=== PATIENT | male | born 1980 | race Caucasian/White ===

== ENCOUNTER 2017-02-27 11:08 | Emergency (ER) | payer OTHER, MEDICARE ==
[~2017-02-27] VITALS: Ht 182.9 cm; Wt 108.9 kg
[2017-02-27 11:12] VITALS: BP 167/80
[2017-02-27] MEDS ORDERED: CYCL10TA2 PO (12:09)
--- NOTE | 2017-02-27 12:09 | PHYS DOC ---
Past Medical History Past Medical History: No Pertinent History Past Surgical History: Appendectomy, Cholecystectomy Additional Information: 1 PPD Alcohol Use: Occasionally Drug Use: None Adult General Chief Complaint Chief Complaint: BACK PAIN OR INJURY [facility] HPI Patient is a 36 year old female presents emergency department stating that he' s been having lower back pain for the last 2 days. Patient states he has not sure how he had injured it he believes that he injured it while he was sleeping. Patient states that he has had no loss of bowel or bladder but did state that he felt like he was going to be his pants. Patient denies any numbness or tingling down to his lower extremity except for when he took a shower today patient is able to ambulate with a good steady gait peripheral pulses are 2+ cap refill brisk less than 2 seconds good sensation noted to the lower extremities. Review of Systems Review of Systems Constitutional: Denies fever or chills [] Eyes: Denies change in visual acuity, redness, or eye pain [] HENT: Denies nasal congestion or sore throat [] Respiratory: Denies cough or shortness of breath [] Cardiovascular: No additional information not addressed in HPI [] GI: Denies abdominal pain, nausea, vomiting, bloody stools or diarrhea [] : Denies dysuria or hematuria [] Musculoskeletal: bilateral lower back pain denies joint pain [] Integument: Denies rash or skin lesions [] Neurologic: Denies headache, focal weakness or sensory changes [] Allergies Allergies Allergies Coded Allergies Type Severity Reaction Last Updated Verified No Known Drug Allergies 02/27/17 No Physical Exam Physical Exam Constitutional: Well developed, well nourished, no acute distress, non-toxic appearance. [] HENT: Normocephalic, atraumatic, bilateral external ears normal, oropharynx moist, no oral exudates, nose normal. [] Eyes: PERRLA, EOMI, conjunctiva normal, no discharge. [] Neck: Normal range of motion, no tenderness, supple, no stridor. [] Cardiovascular:Heart rate regular rhythm, no murmur [] Lungs & Thorax: Bilateral breath sounds clear to auscultation [] Skin: Warm, dry, no erythema, no rash. [] Back: No cervical spine, thoracic spine or lumbar spine tenderness noted no step -offs no deformities or crepitus noted. Patient did have tenderness noted along the bilateral lower back areas. Extremities: No tenderness, no cyanosis, no clubbing, ROM intact, no edema. Peripheral pulses 2+ cap refill brisk less than 2 seconds. Shunt noted Neurologic: Alert and oriented X 3, normal motor function, normal sensory function, no focal deficits noted. [] Psychologic: Affect normal, judgement normal, mood normal. [] Current Patient Data Vital Signs Vital Signs Date Time Temp Pulse Resp B/P Pulse Ox O2 Delivery O2 Flow Rate FiO2 02/27/17 11:12 97.7 86 20 167/80 100 97.7 EKG EKG [] Radiology/Procedures Radiology/Procedures [] Course & Med Decision Making Course & Med Decision Making Pertinent Labs and Imaging studies reviewed. (See chart for details) Patient will be provided with Flexeril with recommendations for ibuprofen 800 mg every 8 hours. Patient was instructed that Flexeril will cause drowsiness do not take any be alert and oriented. Patient was also encouraged to use ice packs on 20 minutes off 20 minutes several times a day. Patient states he has a primary care physician which she can follow-up with his 7-10 days if he continues to have back pain and discomfort. Patient was provided with signs and symptoms to return back to the emergency department. He agrees with discharge instructions treatment regimens and follow-up recommendations he'll be discharged home in stable condition [] Dragon Disclaimer Dragon Disclaimer This electronic medical record was generated, in whole or in part, using a voice recognition dictation system. Departure Departure Impression: Primary Impression: Back pain Disposition: HOME, SELF-CARE Condition: STABLE Referrals: NO PCP (PCP) Patient Instructions: Back Pain, Adult, [id number] Additional Instructions: Activity as tolerated. Ibuprofen 800 mg every 8 hours with food stop taking few develop upset stomach. Flexeril will cause drowsiness do not take any be alert and oriented. Ice packs on 20 minutes off 20 minutes several times a day. Follow-up to primary care physician next 7-10 days. Return back to emergency prior signs symptoms of become worse. Scripts Cyclobenzaprine Hcl 10 Mg [id number] Mg PO TID #30 TAB Prov:LIVIER LOCKE APRN 02/27/17 LIVIER LOCKE APRN Feb 27, 2017 12:09
[2017-02-27] MEDS ORDERED: CYCLOBENZAPRINE 10 MG TABLET. PO ONE (12:15)
[2017-02-27] MEDS ORDERED: IBUPROFEN 800 MG TABLET. PO ONE (12:15)
== END 2017-02-27 12:26 | disposition home or self-care (01) ==
LOC: ER 11:08
DX: M54.5 Low back pain (principal); F17.200 Nicotine dependence, unspecified, uncomplicated
CPT/HCPCS: 99283